=== PATIENT | male | born 1930 | race Caucasian/White ===

== ENCOUNTER 2017-12-28 02:05 | Inpatient (IN) | payer MEDICARE, OTHER ==
[2017-12-28 02:19] LABS: ADD MAN DIFF? NO
[2017-12-28 02:24] LABS: BASOPHIL # 0.1 10^3/ul (0.0-0.1); BASOPHILS % 1.4 % (0.0-2.0); EOSINOPHILS # 0.5 10^3/ul (0.0-0.5); EOSINOPHILS % 7.2 % (0.0-7.0); HEMATOCRIT 36.8 % (42.0-52.0); HEMOGLOBIN 12.3 g/dl (14.0-18.0); LYMPHOCYTES # 1.1 10^3/ul (0.8-2.9); LYMPHOCYTES % 16.3 % (15.0-51.0); MEAN CORPUSCULAR HEMOGLOBIN 29.4 pg (29.0-33.0); MEAN CORPUSCULAR HGB CONC 33.4 g/dl (32.0-37.0); MEAN CORPUSCULAR VOLUME 87.8 fl (82.0-101.0); MEAN PLATELET VOLUME 8.7 fl (7.4-10.4); MONOCYTE # 0.6 10^3/ul (0.3-0.9); MONOCYTES % 8.7 % (0.0-11.0); NEUTROPHIL # 4.3 10^3/ul (1.6-7.5); NEUTROPHILS % 66.1 % (39.0-77.0); PLATELET COUNT 170 10^3/UL (140-415); RED BLOOD COUNT 4.19 10^6/ul (4.70-6.10); RED CELL DISTRIBUTION WIDTH 12.5 % (11.5-14.5)
[2017-12-28 02:24] LABS: WHITE BLOOD COUNT 6.6 10^3/ul (4.8-10.8)
[2017-12-28 02:39] LABS: ANION GAP 16 (8-16); BLOOD UREA NITROGEN 27 mg/dl (7-20); CALCIUM 11.2 mg/dl (8.4-10.2); CARBON DIOXIDE 27 mmol/L (21-31); CHLORIDE 105 mmol/L (97-110); CHOL/HDL RATIO 2.9 RATIO; CHOLESTEROL 116 mg/dl (100-200); CREATINE KINASE 23 IU/L (23-200); CREATININE 1.54 mg/dl (0.61-1.24); GLUCOSE 89 mg/dl (70-220); HDL CHOLESTEROL 40 mg/dl (31-75); LDL CHOLESTEROL,CALCULATED 52 mg/dl; POTASSIUM 4.9 mmol/L (3.5-5.1); SODIUM 143 mmol/L (135-144); TRIGLYCERIDES 122 mg/dl (0-149)
[2017-12-28 02:54] LABS: INR 0.91; PROTIME 12.3 Sec (11.9-14.9)
[2017-12-28 02:55] LABS: CK-MB 0.93 ng/ml (0.0-2.4); TROPONIN-I < 0.012 ng/ml (0.000-0.120)
[2017-12-28 02:56] LABS: PARTIAL THROMBOPLASTIN TIME 32.1 Sec (25.0-35.0)
[2017-12-28] MEDS ORDERED: ALTEPLASE 100 MG INJ IV* (03:00)
[2017-12-28] MEDS ORDERED: ALTEPLASE (tPA) 1 MG/ML BOLUS SYG IV* (03:00)
[2017-12-28] MEDS ORDERED: SOD CHLORIDE 0.9% 50 ML IV (03:00)
[2017-12-28] MEDS: SOD CHLORIDE 0.9% 500 ML IV (03:14)
[2017-12-28] MEDS: ASPIRIN 81 MG TAB PO ×2 (03:17→09:00)
[2017-12-28] MEDS: ASPIRIN 300 MG SUPP PR (03:26)
[2017-12-28] MEDS ORDERED: ACETAMINOPHEN 325 MG TAB PO ×2 (09:00)
[2017-12-28] MEDS ORDERED: DEXTROSE 50% 50 ML SYRINGE IV ×2 (09:00)
[2017-12-28] MEDS ORDERED: ONDANSETRON 4 MG INJ IV (09:00)
[2017-12-28] MEDS ORDERED: morphine LIQ (10 MG/5 ML) CUP PO (09:00)
[2017-12-28] MEDS ORDERED: GLUCOSE GEL 15 GRAM TUBE BUCCAL (09:00)
[2017-12-28] MEDS ORDERED: NACL 0.9% 3 ML SYG IV (09:00)
[2017-12-28] MEDS: CYANOCOBALAMIN 500 MCG TAB PO (09:00)
[2017-12-28] MEDS ORDERED: LANSOPRAZOLE 15 MG CAP PO (09:00)
[2017-12-28] MEDS ORDERED: ALBUTEROL/IPRATROPIUM (NEB) 3 ML AMP HHN (09:00)
[2017-12-28] MEDS ORDERED: FINASTERIDE 5 MG TAB PO (09:00)
[2017-12-28] MEDS ORDERED: DOCUSATE SODIUM 100 MG CAP PO (09:00)
[2017-12-28] MEDS ORDERED: MAGNESIUM HYDROXIDE 30ML CUP PO (09:00)
[2017-12-28] MEDS ORDERED: GLUCOSE GEL 15 GRAM TUBE PO ×2 (09:00)
[2017-12-28] MEDS: metFORMIN 500 MG TAB PO ×2 (09:00→21:00)
[2017-12-28] MEDS ORDERED: GLUCAGON 1 MG INJ IM (09:00)
[2017-12-28] MEDS: IODIXANOL LOCM 100 ML BTL (09:55)
[2017-12-28] MEDS: SOD CHLORIDE 0.9% 100 ML (09:55)
[2017-12-28] MEDS: QUETIAPINE 25 MG TAB PO ×2 (11:37→20:40)
[2017-12-28] MEDS: MULTIVITAMINS THERAPEUTIC TAB PO (11:39)
[2017-12-28] MEDS: METOPROLOL (XL) 50 MG TAB PO (11:40)
[2017-12-28] MEDS: LANSOPRAZOLE 30 MG CAP PO (11:41)
[2017-12-28] MEDS: FINASTERIDE 5 MG TAB PO (11:41)
[2017-12-28] MEDS: SERTRALINE 50 MG TAB PO (11:42)
[2017-12-28] MEDS: HEPARIN 5,000 UNIT/0.5 ML VIAL SC (11:57)
[2017-12-28] MEDS: TAMSULOSIN (SR) 0.4 MG CAP PO (20:40)
[2017-12-28] MEDS: ATORVASTATIN 40 MG TAB PO ×2 (20:40→21:00)
[2017-12-29 06:59] LABS: ADD MAN DIFF? NO
[2017-12-29 07:10] LABS: WHITE BLOOD COUNT 6.8 10^3/ul (4.8-10.8)
[2017-12-29 07:10] LABS: BASOPHIL # 0.1 10^3/ul (0.0-0.1); BASOPHILS % 1.3 % (0.0-2.0); EOSINOPHILS # 0.5 10^3/ul (0.0-0.5); EOSINOPHILS % 7.2 % (0.0-7.0); HEMATOCRIT 35.5 % (42.0-52.0); HEMOGLOBIN 12.2 g/dl (14.0-18.0); LYMPHOCYTES # 0.8 10^3/ul (0.8-2.9); LYMPHOCYTES % 11.8 % (15.0-51.0); MEAN CORPUSCULAR HEMOGLOBIN 29.3 pg (29.0-33.0); MEAN CORPUSCULAR HGB CONC 34.4 g/dl (32.0-37.0); MEAN CORPUSCULAR VOLUME 85.3 fl (82.0-101.0); MEAN PLATELET VOLUME 9.4 fl (7.4-10.4); MONOCYTE # 0.6 10^3/ul (0.3-0.9); MONOCYTES % 9.1 % (0.0-11.0); NEUTROPHIL # 4.8 10^3/ul (1.6-7.5); NEUTROPHILS % 70.5 % (39.0-77.0); PLATELET COUNT 179 10^3/UL (140-415); RED BLOOD COUNT 4.16 10^6/ul (4.70-6.10); RED CELL DISTRIBUTION WIDTH 12.4 % (11.5-14.5)
[2017-12-29 07:20] LABS: ALANINE AMINOTRANSFERASE 35 IU/L (13-69); ALBUMIN 4.1 g/dl (3.3-4.9); ALBUMIN/GLOBULIN RATIO 1.57; ALKALINE PHOSPHATASE 73 IU/L (42-121); ANION GAP 14 (8-16); ASPARTATE AMINO TRANSFERASE 22 IU/L (15-46); BILIRUBIN,INDIRECT 0.5 mg/dl (0-1.1); BILIRUBIN,TOTAL 0.5 mg/dl (0.2-1.3); BLOOD UREA NITROGEN 21 mg/dl (7-20); CALCIUM 10.7 mg/dl (8.4-10.2); CARBON DIOXIDE 28 mmol/L (21-31); CHLORIDE 105 mmol/L (97-110); CHOLESTEROL 102 mg/dl (100-200); CREATININE 1.37 mg/dl (0.61-1.24); GLUCOSE 97 mg/dl (70-220); HDL CHOLESTEROL 34 mg/dl (31-75); LDL CHOLESTEROL,CALCULATED 41 mg/dl; MAGNESIUM 1.3 mg/dl (1.7-2.5); POTASSIUM 4.3 mmol/L (3.5-5.1); SODIUM 143 mmol/L (135-144); TOTAL PROTEIN 6.7 g/dl (6.1-8.1); TRIGLYCERIDES 137 mg/dl (0-149)
[2017-12-29] MEDS: QUETIAPINE 25 MG TAB PO ×2 (08:47→21:26)
[2017-12-29] MEDS: metFORMIN 500 MG TAB PO ×2 (08:47→21:26)
[2017-12-29] MEDS: ASPIRIN 81 MG TAB PO (08:47)
[2017-12-29] MEDS: LANSOPRAZOLE 30 MG CAP PO (08:47)
[2017-12-29] MEDS: MULTIVITAMINS THERAPEUTIC TAB PO (08:47)
[2017-12-29] MEDS: FINASTERIDE 5 MG TAB PO (08:48)
[2017-12-29] MEDS: METOPROLOL (XL) 25 MG TAB PO (08:48)
[2017-12-29] MEDS: CYANOCOBALAMIN 500 MCG TAB PO (08:48)
[2017-12-29] MEDS: SERTRALINE 50 MG TAB PO (08:48)
[2017-12-29] MEDS: CLOPIDOGREL 75 MG TAB PO ×2 (09:00→17:15)
[2017-12-29] MEDS ORDERED: MAGNESIUM SULFATE 3 GM in DEXTROSE 5% 100 ML IVPB (14:30)
[2017-12-29] MEDS: MAGNESIUM SULFATE 1 GM/D5W 100 ML IVPB (15:28)
[2017-12-29] MEDS: MAG SULFATE 2GM IN 50 ML IVPB (17:16)
[2017-12-29] MEDS: ATORVASTATIN 40 MG TAB PO (21:25)
[2017-12-29] MEDS: TAMSULOSIN (SR) 0.4 MG CAP PO (21:26)
[2017-12-30] MEDS: FINASTERIDE 5 MG TAB PO (08:45)
[2017-12-30] MEDS: SERTRALINE 50 MG TAB PO (08:45)
[2017-12-30] MEDS: QUETIAPINE 25 MG TAB PO ×2 (08:45→20:56)
[2017-12-30] MEDS: MULTIVITAMINS THERAPEUTIC TAB PO (08:45)
[2017-12-30] MEDS: CYANOCOBALAMIN 500 MCG TAB PO (08:45)
[2017-12-30] MEDS: CLOPIDOGREL 75 MG TAB PO (08:45)
[2017-12-30] MEDS: ASPIRIN 81 MG TAB PO (08:45)
[2017-12-30] MEDS: metFORMIN 500 MG TAB PO (08:45)
[2017-12-30] MEDS: METOPROLOL (XL) 25 MG TAB PO (08:45)
[2017-12-30] MEDS: LANSOPRAZOLE 30 MG CAP PO (08:45)
[2017-12-30 09:48] LABS: ANION GAP 18 (8-16); BLOOD UREA NITROGEN 19 mg/dl (7-20); CALCIUM 10.6 mg/dl (8.4-10.2); CARBON DIOXIDE 25 mmol/L (21-31); CHLORIDE 104 mmol/L (97-110); CREATININE 1.39 mg/dl (0.61-1.24); GLUCOSE 129 mg/dl (70-220); MAGNESIUM 1.9 mg/dl (1.7-2.5); POTASSIUM 4.6 mmol/L (3.5-5.1); SODIUM 142 mmol/L (135-144)
[2017-12-30] MEDS: INSULIN ASPART [NOVOLOG] 3 ML PEN SC ×3 (12:00→20:55)
[2017-12-30] MEDS: HEPARIN 5,000 UNIT/0.5 ML VIAL SC (16:35)
[2017-12-30] MEDS: ATORVASTATIN 40 MG TAB PO (20:55)
[2017-12-30] MEDS: TAMSULOSIN (SR) 0.4 MG CAP PO (20:56)
[2017-12-31] MEDS: HEPARIN 5,000 UNIT/0.5 ML VIAL SC ×2 (01:19→09:15)
[2017-12-31] MEDS: INSULIN ASPART [NOVOLOG] 3 ML PEN SC ×2 (08:00→12:41)
[2017-12-31] MEDS: SERTRALINE 50 MG TAB PO (08:32)
[2017-12-31] MEDS: CLOPIDOGREL 75 MG TAB PO (08:32)
[2017-12-31] MEDS: CYANOCOBALAMIN 500 MCG TAB PO (08:32)
[2017-12-31] MEDS: ASPIRIN 81 MG TAB PO (08:32)
[2017-12-31] MEDS: MULTIVITAMINS THERAPEUTIC TAB PO (08:32)
[2017-12-31] MEDS: QUETIAPINE 25 MG TAB PO (08:32)
[2017-12-31] MEDS: FINASTERIDE 5 MG TAB PO (08:32)
[2017-12-31] MEDS: LANSOPRAZOLE 30 MG CAP PO (08:32)
[2017-12-31] MEDS: METOPROLOL (XL) 25 MG TAB PO (08:34)
[2017-12-31 14:29] LABS: ANION GAP 18 (8-16); BLOOD UREA NITROGEN 20 mg/dl (7-20); CALCIUM 10.4 mg/dl (8.4-10.2); CARBON DIOXIDE 23 mmol/L (21-31); CHLORIDE 108 mmol/L (97-110); CREATININE 1.35 mg/dl (0.61-1.24); GLUCOSE 116 mg/dl (70-220); POTASSIUM 4.6 mmol/L (3.5-5.1); SODIUM 144 mmol/L (135-144)
== END 2017-12-31 17:21 | DRG 65 ==
LOC: E/R 02:05 → MS4 04:34
PROVIDERS: Internal Medicine
DX: I63.9 Cerebral infarction, unspecified (principal); N17.9 Acute kidney failure, unspecified; G83.24 Monoplegia of upper limb affecting left nondominant side; R29.810 Facial weakness; F32.9 Major depressive disorder, single episode, unspecified; I12.9 Hypertensive chronic kidney disease with stage 1 through stage 4 chronic kidney disease, or unspecified chronic kidney disease; E11.22 Type 2 diabetes mellitus with diabetic chronic kidney disease; N18.3 Chronic kidney disease, stage 3 (moderate); E11.51 Type 2 diabetes mellitus with diabetic peripheral angiopathy without gangrene; N40.0 Benign prostatic hyperplasia without lower urinary tract symptoms; E78.5 Hyperlipidemia, unspecified; Z86.73 Personal history of transient ischemic attack (TIA), and cerebral infarction without residual deficits; Z95.0 Presence of cardiac pacemaker; Z87.891 Personal history of nicotine dependence; Z79.84 Long term (current) use of oral hypoglycemic drugs; Z79.82 Long term (current) use of aspirin
CPT/HCPCS: 36415; 70450; 70496; 70498; 71045; 80048; 80053; 80061; 82550; 82553; 82962; 83036; 83735; 84443; 84484; 85025; 85610; 85730; 92523; 92526; 92610; 93005; 93306; 96360; 96361; 96372; 97110; 97163; 97165; 97530; 99285-25